=== PATIENT | male | born 1980 | race Caucasian/White ===

== ENCOUNTER 2019-07-02 12:53 | Emergency (ER) | payer OTHER ==
[2019-07-02 13:35] VITALS: BP 141/88
--- NOTE | 2019-07-02 13:41 | ED ---
Throat Pain/Nasal Congestion - HPI Summary HPI Summary: 39 year old M arriving via private car from [facility] complains of right sided epistaxis x2 hours[facility] and placed nose clip on and packing in right nare which did not help. Patient additionally c/o headache located in the back of his head x4 days. Hx headaches. Usually takes Excedrin. Did not take any today. He states he sometimes gets nose bleeds with his headache. Symptoms aggravated by nothing. Symptoms alleviated by nothing. Medications reviewed. He does not take NSAIDs or aspirin. On Adderall. - History of Current Complaint Chief Complaint: EDEpistaxis Time Seen by Provider: 07/02/19 13:24 Hx Obtained From: Patient Onset/Duration: Lasting Hours - 2, Still Present - Allergies/Home Medications Allergies/Adverse Reactions: Allergies Allergy/AdvReac Type Severity Reaction Status Date / Time No Known Allergies Allergy Verified 07/02/19 12:56 PMH/Surg Hx/FS Hx/Imm Hx Endocrine/Hematology History: Denies: Hx Diabetes Cardiovascular History: Denies: Hx Hypertension Respiratory History: Denies: Hx Asthma EENT History: Reports: Other - epistaxis Neurological History: Reports: Hx Headaches Psychiatric History: Reports: Hx Attention Deficit Hyperactivity Disorder - Surgical History Surgery Procedure, Year, and Place: shoulder. right wrist. 3 basal cell carcinomas. hydrocele repair Infectious Disease History: No Infectious Disease History: Denies: Traveled Outside the [place] in Last 30 Days - Family History Known Family History: Positive: Cardiac Disease, Hypertension - Social History Alcohol Use: Rare Substance Use Type: Reports: None Hx Tobacco Use: No Smoking Status (MU): Never Smoked Tobacco Review of Systems Positive: Epistaxis Positive: Headache All Other Systems Reviewed And Are Negative: Yes Physical Exam - Summary Physical Exam Summary: General: Well appearing, no distress HEENT: PERRL; Dried blood in the right nare Cardiovascular: Skin is well perfused Pulmonary: No respiratory distress, no tachypnea Abdomen: Non-distended Skin: Warm, pink, dry MSK: No edema Psych: Normal affect Neuro: A&Ox3 Triage Information Reviewed: Yes Vital Signs On Initial Exam: Initial Vitals Temp Pulse Resp BP Pulse Ox 97.7 F 80 16 139/106 96 07/02/19 12:54 07/02/19 12:54 07/02/19 12:54 07/02/19 12:54 07/02/19 12:54 Vital Signs Reviewed: Yes Procedures - Sedation Patient Received Moderate/Deep Sedation with Procedure: No Diagnostics - Vital Signs Vital Signs Temp Pulse Resp BP Pulse Ox 07/02/19 12:54 97.7 F 80 16 139/106 96 - Laboratory Lab Statement: Any lab studies that have been ordered have been reviewed, and results considered in the medical decision making process. Re-Evaluation - Re-Evaluation First Eval Re-Evaluation Time: 13:55 Comment: patient took off his nose clip Second Eval Re-Evaluation Time: 15:10 Change: Improved - no recuurent bleeding, ambulating in ED EENT Course/Dx - Course Course Of Treatment: 39 y/o male p/w epistaxis, now resolved. - VS mildly hypertensive. No trauma, no blood thinners. - s/p afrin. Nasal clipping removed , observed in ED. No recurrent bleeding. - History of headaches of similar type. This is not the worst headache patient has had, and no additional features today to suggest need for further workup on a truly emergent basis ( imaging, LP, etc). Declines medication - Diagnoses Provider Diagnoses: Epistaxis, Headache Discharge ED - Sign-Out/Discharge Documenting (check all that apply): Patient Departure - Discharge Plan Condition: Stable Disposition: HOME Patient Education Materials: Nosebleed (ED) Referrals: [facility] [Outside] Additional Instructions: You were seen in the emergency department for nosebleed. If this happens again please apply pressure for 15 minutes. Please follow up with your primary care doctor in next 2-3 days and return to emergency department for worsening or concerning symptoms. It was a pleasure taking care of you today. - Billing Disposition and Condition Condition: STABLE Disposition: Home - Attestation Statements Document Initiated by Scribe: Yes Documenting Scribe: Yas Palumbo Provider For Whom Rita is Documenting (Include Credential): Steffi Lopez MD Scribe Attestation: Yas Mckeon, scribed for Steffi Lopez MD on 07/02/19 at 1428. Scribe Documentation Reviewed: Yes Provider Attestation: The documentation as recorded by the scribeYas accurately reflects the service I personally performed and the decisions made by me, Steffi Lopez MD Status of Scribe Document: Viewed
== END 2019-07-02 14:32 | disposition home or self-care (01) ==
LOC: ED 12:53
DX: R04.0 Epistaxis (principal); R51 Headache; F90.9 Attention-deficit hyperactivity disorder, unspecified type; Z79.899 Other long term (current) drug therapy
CPT/HCPCS: 99282